=== PATIENT | male | born 1955 | race Caucasian/White ===

== ENCOUNTER 2017-11-02 11:31 | Day surgery (SDC) | payer BC ==
[~2017-11-02] VITALS: Ht 172.7 cm; Wt 109.7 kg
[2017-11-02 12:12] VITALS: Ht 172.7 cm; Wt 109.7 kg
[2017-11-02] MEDS ORDERED: METO-335 PO (12:23)
[2017-11-02] MEDS ORDERED: LISI2.5T59 PO (12:23)
[2017-11-02] MEDS ORDERED: TAMS0.4C2 PO (12:23)
[2017-11-02 12:50] VITALS: BP 119/68; PULSE 56; RESP 20
[2017-11-02] MEDS ORDERED: LIDOCAINE 4% SOLUTION 50 ML BTL ONE (13:05)
--- NOTE | 2017-11-02 13:35 | OPPN ---
Date/Time of Note Date/Time of Note DATE: 11/02/17 TIME: 13:32 Operative Report Preoperative Diagnosis History of GI bleed cirrhosis Postoperative Diagnosis Small 3 mm ulcer in the antrum 3 mm ulcer in the duodenal bulb 2+ varices not bleeding Operation/Procedure Performed EGD Surgeon see signature line assistant construction superintendent None Anesthesia: moderate sedation (Versed 4 mg fentanyl 100 mcg total. For moderate sedation 18 minutes) Estimated blood loss: none Transfusion Required none Specimen None Grafts/Implants none Complications none JESSY MAX MD Nov 02, 2017 13:35
[2017-11-02] MEDS ORDERED: FENTAnyl 50 MCG/ML VIAL ONE (13:37)
[2017-11-02] MEDS ORDERED: MIDAZOLAM 1 MG/ML 2 ML INJ ONE ×2 (13:37)
--- NOTE | 2017-11-03 05:29 | GILP ---
DATE OF PROCEDURE: 11/02/2017 PREOPERATIVE DIAGNOSIS: History of gastrointestinal bleed and past history of varices banded. PROCEDURE DONE: Follow up Esophagogastroduodenoscopy. POSTOPERATIVE DIAGNOSIS: 2+ varices, not bleeding in the distal esophagus, gastropathy due to jc l hypertension, a 3 mm antral ulcer, not bleeding. No visible vessel, a 3 mm duodenal ulcer not ble eding. No visible vessel. DESCRIPTION OF PROCEDURE: The patient was put in left lateral decubitus after obtaining informed co nsent, the posterior pharynx anesthetized with 4% Xylocaine, 4 mg IV Versed and 100 mcg of fentanyl given. Very carefully advanced Olympus video upper endoscope into the esophagus, stomach and duoden um. In the distal esophagus, 2+ varices noted but they were not bleeding. There were noted sparse and no stigmata of recent bleed; however, in the stomach, there was gastropathy due to portal hypert ension and in the antrum, there was a very small ulcer, not bleeding. No visible vessel. It was le ss than 3 mm. In the duodenal bulb again there was a 3 mm ulcer, but not bleeding and photography o f these areas done. Then the scope was withdrawn. Patient had no complication. PLAN: Will be to give him omeprazole 20 mg every day for next 3 months and he will see me in 2 magen hs. He will follow up with your office for further evaluation and I advised him not to take any alc ohol. Dictated By: JESSY ROJO Conf#: [id number] DID#: [id number] CC: Hua Leo MD;*EndCC*
== END 2017-11-02 20:59 | disposition home or self-care (01) ==
LOC: GIL 11:31
PROVIDERS: ATTEND Internal Medicine
DX: K76.6 Portal hypertension (principal); K31.89 Other diseases of stomach and duodenum; K26.9 Duodenal ulcer, unspecified as acute or chronic, without hemorrhage or perforation
CPT/HCPCS: 43235; J2250; J3010; Z7610

== ENCOUNTER 2019-05-31 09:22 | Day surgery (SDC) | payer MEDICARE, BC ==
[~2019-05-31] VITALS: Ht 170.2 cm; Wt 115.3 kg
[2019-05-31] VITALS (14 sets, daily range): BP systolic 111–127; BP diastolic 60–78; PULSE 58–94; RESP 8–21; Ht 170.2 cm; Wt 115.3 kg
[~2019-05-31 09:22] MED LIST: ACETAMINOPHEN 500 MG TAB PO ONE; LISI2.5T59 PO; METO-335 PO; TAMS0.4C2 PO
[2019-05-31] MEDS ORDERED: AMLO-147 PO (10:35)
[2019-05-31] MEDS ORDERED: ESOM40CA PO (10:36)
[2019-05-31] MEDS ORDERED: RIFA550T4 PO (10:36)
[2019-05-31] MEDS ORDERED: SPIR50TA PO (10:37)
[2019-05-31] MEDS ORDERED: FURO20TA3 PO (10:37)
[2019-05-31] MEDS ORDERED: TAMS-14 PO (10:37)
[2019-05-31] MEDS ORDERED: METO-448 PO (10:38)
[2019-05-31] MEDS ORDERED: ROCURONIUM 50 MG INJ ONE (10:58)
[2019-05-31] MEDS ORDERED: ONDANSETRON 4 MG INJ ONE (10:58)
[2019-05-31] MEDS ORDERED: MIDAZOLAM 1 MG/ML 2 ML INJ ONE (10:58)
[2019-05-31] MEDS ORDERED: DEXAMETHASONE 4 MG/ML 5 ML INJ ONE (10:58)
[2019-05-31] MEDS ORDERED: LIDOCAINE 2% (SDV) 5 ML INJ ONE (10:58)
[2019-05-31] MEDS ORDERED: FENTAnyl 50 MCG/ML VIAL ONE (10:58)
[2019-05-31] MEDS ORDERED: FAMOTIDINE 20 MG INJ ONE (10:59)
[2019-05-31] MEDS ORDERED: DESFLURANE 15 MIN ONE (11:00)
[2019-05-31] MEDS ORDERED: CEFAZOLIN 1 GM INJ ONE (11:00)
[2019-05-31] MEDS ORDERED: LACTATED RINGER'S 1,000 ML IV SCH (11:00)
[2019-05-31] MEDS ORDERED: PROPOFOL 200 MG INJ ONE (11:00)
[2019-05-31] MEDS ORDERED: COCAINE 4% 4 ML TOP ONE (11:50)
[2019-05-31] MEDS ORDERED: LIDOCAINE 1%/EPI 30 ML INJ ONE (11:50)
[2019-05-31] MEDS ORDERED: BACITRACIN/POLYMYXIN 28.35 GM OINT TOP ONE (11:50)
--- NOTE | 2019-05-31 11:51 | HPN ---
Date/Time of Note Date/Time of Note DATE: 05/31/19 TIME: 11:51 Interval H&P Admission Note Pt. seen H&P reviewed: No system changes GISSELL LEBLANC M.D. May 31, 2019 11:51
--- NOTE | 2019-05-31 11:59 | PREAC ---
Date/Time of Note Date/Time of Note DATE: 05/31/19 TIME: 11:56 Anesthesia Eval and Record Evaluation Time Pre-Procedure Interview DATE: 05/31/19 TIME: 11:56 Age 64 Sex male NPO: 8 hrs Preoperative diagnosis chronic nasal obstruction, L nasal deviation Planned procedure bilateral laser turbinoplasty and septoplasty Past Medical History Past Medical History: Includes (fatty liver) Cardio: HTN Pulm: Sleep Apnea Hepatic: Cirrhosis GI: Obesity Surgery & Anesthesia Issues No known issue Meds Anticoagulation: No Beta Brando within 24 hr: No Reason Beta Brando not given: Pt. not on B-Brando Reported Medications Metoprolol Tartrate* (Lopressor*) 25 Mg Tab, 25 MG PO BID, #60 TAB 05/31/19 Spironolactone* (Aldactone*) 50 Mg Tablet, 50 MG PO DAILY, #30 TAB 05/31/19 Tamsulosin Hcl* (Flomax*) 0.4 Mg Cap.er.24h, 0.4 MG PO DAILY, CAP 05/31/19 Furosemide* (Furosemide*) 20 Mg Tablet, 20 MG PO DAILY, #60 TAB 05/31/19 Esomeprazole Mag Trihydrate (Nexium) 40 Mg Capsule.dr, 40 MG PO DAILY, #30 CAP 05/31/19 Rifaximin* (Xifaxan*) 550 Mg Tablet, 550 MG PO BID, TAB 05/31/19 Amlodipine Besylate* (Amlodipine Besylate*) 10 Mg Tablet, 10 MG PO DAILY, #30 TAB 05/31/19 Discontinued Reported Medications Tamsulosin Hcl* (Tamsulosin Hcl*) 0.4 Mg Cap.er.24h, 0.4 MG PO DAILY, CAP 11/02/17 Metoprolol Succinate* (Toprol XL*) 25 Mg Tab.sr.24h, 25 MG PO DAILY, #30 TAB 11/02/17 Lisinopril* (Lisinopril*) 2.5 Mg Tablet, 2.5 MG PO DAILY, #30 TAB 11/02/17 Current Medications Lactated Ringer's 1,000 ml @ 25 mls/hr Q24H IV Last administered on 05/31/19at 10:57; Admin Dose 25 MLS/HR; Start 05/31/19 at 11:00 Meds reviewed: Yes Allergies Coded Allergies: iodine (Verified Allergy, Intermediate, SOB, 05/31/19) Allergies Reviewed: Yes Labs/Studies Labs Reviewed: Reviewed by anesthesiologist test: N/A Studies: ECG (nsr), CXR (no active dz) Pre-procedure Exam Last vitals Vital Signs Date Temp Pulse Resp B/P (MAP) Pulse Ox O2 O2 Flow FiO2 Time Delivery Rate 05/31/19 98.4 58 16 114/63 99 Room Air 10:45 (80) Airway: Adequate mouth opening, Adequate thyromental dist Mallampati: Mallampati II Teeth: Normal Lung: Normal Heart: Normal ASA Physical Status ASA physical status: 3 Emergency: None Planned Anesthetic General/MAC: ETT Pre-operative Attestations Prior to commencing anesthesia and surgery, the patient was re-evaluated, there was verification of: *The patient's identity *The results of appropriate recent lab work and preoperative vital signs *The above evaluation not changing prior to induction *Anesthetic plan, risk benefits, alternative and complications discussed with patient/family; questions answered; patient/family understands, accepts and wishes to proceed. FELICIA GREEN May 31, 2019 11:59
[2019-05-31] MEDS ORDERED: hydrALAzine 20 MG INJ IV PRN (12:00)
[2019-05-31] MEDS ORDERED: morphine 2 MG INJ IV PRN ×2 (12:00)
[2019-05-31] MEDS ORDERED: MEPERIDINE 25 MG INJ IV PRN (12:00)
[2019-05-31] MEDS ORDERED: FENTAnyl 50 MCG/ML VIAL IV PRN ×2 (12:00)
[2019-05-31] MEDS ORDERED: ONDANSETRON 4 MG INJ IV PRN (12:00)
[2019-05-31] MEDS ORDERED: LABETALOL HCL 20MG INJ IV PRN (12:00)
[2019-05-31] MEDS ORDERED: ALBUTEROL 0.083% (NEB) 2.5 MG/3 ML AMP HHN PRN (12:00)
[2019-05-31] MEDS ORDERED: OXYCODONE/ACETAMINOPHEN (5/325) TAB PO PRN (12:00)
[2019-05-31] MEDS ORDERED: DIPHENHYDRAMINE 50 MG INJ IV PRN (12:00)
[2019-05-31] MEDS ORDERED: HYDROmorphONE 1 MG/5 ML IV SYRINGE IV PRN ×3 (12:00)
[2019-05-31] MEDS ORDERED: GLYCOPYRROLATE 0.4 MG INJ ONE (12:37)
[2019-05-31] MEDS ORDERED: NEOSTIGMINE 3 MG/3 ML SYRINGE ONE (12:37)
--- NOTE | 2019-05-31 13:23 | OPR ---
Date/Time of Note Date/Time of Note DATE: 05/31/19 TIME: 13:18 Operative Report Procedure Date: May 31, 2019 Preoperative Diagnosis 1. SEPTAL DEVIATION. 2. BILATERAL NASAL TURBINATE TISSUE HYPERTROPHY. 3. CHRONIC NASAL OBSTRUCTION. Postoperative Diagnosis SAME. Operation/Procedure Performed 1. SEPTOPLASTY VIA [facility]. 2. BILATERAL LASER KTP 532 NM TURBINOPLASTY VIA [facility]. Surgeon see signature line Plasterer Tender NONE. Anesthesia Type: general (WITH TOPICAL COCCAINE 4% 4CC AND 1% LIDOCAINE WITH EPI 1:100,000 SOLN 10 CC.) Estimated Blood Loss: 10 - 50 ml's Transfusion none Specimen SEPTAL CARTILAGE AND BONE. Grafts/Implants none Tubes/Drains NONE. Complications none Pt Condition Post Procedure: stable Disposition: PACU Indications TO IMPROVE BREATHING. Procedure Description SEE DICTATED OPERATIVE REPORT. GISSELL LEBLANC M.D. May 31, 2019 13:23
--- NOTE | 2019-05-31 13:25 | PDOCDIS ---
Discharge Instructions DIAGNOSIS Discharge Diagnosis 1. SEPTAL DEVIATION. 2. BILATERAL NASAL TURBINATE TISSUE HYPERTROPHY. 3. CHRONIC NASAL OBSTRUCTION. CONDITION [id number] Patient Condition: [id number] Good HOME CARE INSTRUCTIONS: [id number] Diet Instructions: Escik1q Regular ACTIVITY: [id number] Activity Restrictions: [id number] Slowly Increase Activity Avoid heavy lifting No Sexual Activity Avoid Heavy Housework [id number] Bathing Restrictions: [id number] Tub Bath FOLLOW UP/APPOINTMENTS Follow-up Plan MY OFFICE IN 7 TO 10 DAYS. SCHOOL/WORK RELEASE May return to School/Work on: Jun 07, 2019 May return to School/Work with: No Restrictions GISSELL LEBLANC M.D. May 31, 2019 13:25
--- NOTE | 2019-05-31 13:36 | PAC ---
Date/Time of Note Date/Time of Note DATE: 05/31/19 TIME: 13:36 Post-Anesthesia Notes Post-Anesthesia Note Last documented vital signs Vital Signs Date Temp Pulse Resp B/P Pulse Ox O2 O2 Flow FiO2 Time (MAP) Delivery Rate 05/31/19 98.4 98.6 58 94 16 17 114/63 99 94 Room 10:45 133 (80) 127 Air face mask 6L Activity: WNL Respiratory function: WNL Cardiovascular function: WNL Mental status: Baseline Pain reasonably controlled: Yes Hydration appropriate: Yes Nausea/Vomiting absent: Yes FELICIA GREEN May 31, 2019 13:36
--- NOTE | 2019-05-31 14:36 | OPR ---
DATE OF OPERATION: 05/31/2019 SURGEON: Nino Richardson MD PREOPERATIVE DIAGNOSES: 1. Nasal septal deviation. 2. Bilateral nasal turbinate tissue hypertrophy. 3. Bilateral chronic nasal obstruction. POSTOPERATIVE DIAGNOSES: 1. Nasal septal deviation. 2. Bilateral nasal turbinate tissue hypertrophy. 3. Bilateral chronic nasal obstruction. OPERATION PERFORMED: 1. Septoplasty using submucosal resection technique. 2. Bilateral laser turbinoplasty procedure using a 532 nanometer laser using submucosal resection te chnique. ESTIMATED BLOOD LOSS: Less than 30 mL. COMPLICATIONS: None. SPECIMENS SENT TO LAB: Septal cartilage and bone for gross microscopic evaluation. ANESTHETIC USED: General anesthesia with orotracheal tube intubation. The patient also had topical cocaine 4% using 4 mL as well as 10 mL of 1% lidocaine with epinephrine 1:100,000 solution. The roni ent also given a gram of Ancef before the case was begun. FINDINGS DURING PROCEDURE: Left nasal septal deviation with posterior septal deflections near the ch donya. The patient was also found to have enlarged turbinates bilaterally with papillomatous degenera tive mucosal changes of the promontory. There are no signs of malignancies, tumors, polyps present d uring the procedure. INDICATIONS: Mr. Jj Coe is a 64-year-old male who has a history of chronic nasal obstruction treated with topical nasal steroids and decongestant medications. The patient has failed these treat ments and continues to have chronic nasal obstruction. The patient was found on CT scan evaluation t o have a deviated nasal septum with swollen turbinates bilaterally. The patient is currently schedul ed for today's procedures include a septoplasty procedure with bilateral laser turbinoplasty procedur e to help alleviate his nasal obstruction. Risks, benefits, and alternatives were explained thorough ly to Mr. Coe including infection, bleeding, scar formation, possible failure of procedure as well as septal perforation. He also understands the risks of possible reactions to general and topical a nd local anesthetic agents that will be used during the procedure. He signed consent once his questi ons were answered. DISPOSITION: The patient left the operating room in good and satisfactory condition. DESCRIPTION OF PROCEDURE: The patient was taken the operating room, placed on a surgical table in barillas pine position, made comfortable by the WEATHERIZATION FIELD TECHNICIAN. The patient had EKG, saturation monitor and blood press ure cuff applied. At this point, the patient was given a mask inhalation agent and placed asleep gen tly. The patient had a previously started IV in the preinduction area which was infusing well. The patient was given IV injections and placed under general anesthesia. At this point, the air was then maintained and controlled for the patient was successfully orotracheally intubated with orotracheal tube. The tube was taped to the left corner of the mouth as the eyes were taped for protection. At this point, the table was left in the midline and locked. At this point, the patient was draped out in usual sterile fashion using split sheet and towels. Wet towels were placed around the nasal cavit y in preparation for laser use. At this point, the patient had a brief time-out with patient identif ication and procedure, and all were in agreement. The nose was then prepped with direct visualizatio n and injections using 1% lidocaine with epinephrine 1:100,000 25-gauge needle. Injections to the se ptum, floor of the nose as well as the inferior turbinates bilaterally. There were also injections i n the anterior nasal spine region with a 25-gauge 1-11/24 needle. At this point, all personnel in the operating room were asked to place safety goggles on for their protection. Under direct visualizatio n, the straight hand-held handpiece with suction attachment was then used as a laser fiber was thread ed. The laser was set at 8 lopes continuous power as a foot pedal was used to activate the laser. T he left inferior turbinate was then reduced in the submucosal space using a stabbing technique in a p osterior direction. The smoke was evacuated through the evacuator as the nasal turbinate was noted t o shrink in size on the left side. After complete lateralization of the inferior turbinate on the le ft side, the right side was done in similar fashion too. It too had papillomatous degenerative mucos al changes noted in the inferior turbinate. After both sides were reduced in submucosal space, there was greater patency of the nasal cavity. At this point, a septoplasty procedure was performed by dipak morales a hemitransfixion incision on the left side of the nose and the anterior septal margin. This in cision was carried down through the mucosal lining down to the perichondrium. A mucoperichondrial fl ap was then elevated with a Quinten elevator with care not to tear the flaps. At this point, the trino ated cartilage was then removed from between the flaps per minimal left side. There are also deviate d portions of septal cartilage in the bony aspect and the posterior choanal region. These bony proje ctions were also removed with a Francisca forceps. At this point, the hemitransfixion incision was t hen closed using a simple interrupted Vicryl 4-0 suture. The septum was noted to be in the midline a t this point. At this point, the blood was removed from the nose with a Stock suction as bacitraci n ointment was packed inside the nose as a packing. A 4 x 4 dressing was placed beneath the nose to catch any drainage. This ended the procedure. Sponge count and instrument count was correct x3. Th ere were no complications during the procedure. The patient was then reversed from general anestheti c agents, extubated, and taken to the recovery room. The patient expects to be discharged home unles s postoperative complications develop. Dictated By: NINO JACINTO/KIM Conf#: [id number] DID#: [id number]
== END 2019-05-31 18:33 | disposition home or self-care (01) ==
LOC: SDS 09:22
PROVIDERS: ATTEND Otolaryngology Otolaryngology/Facial Plastic Surgery
DX: J34.2 Deviated nasal septum (principal); J34.3 Hypertrophy of nasal turbinates; J34.89 Other specified disorders of nose and nasal sinuses
CPT/HCPCS: 30140; 30520; 88300; J0690; J1100; J2175; J2250; J2405; J2710; J3010; J7120